=== PATIENT | female | born 1965 | race Caucasian/White ===

== ENCOUNTER → 2016-09-14 | Outpatient (CLI) | payer MEDICARE ==
[~2016-09-14] MED LIST: AMOXICILLIN 8751 TAB PO; CELEXA10 MG PO; DESYREL 100MG100 MG PO; EFFEXOR 75M75 MG/TAB PO; ESTRACE 1MG1 MG/TAB PO; MSIR30 MG PO; NEURONTIN800 MG/TAB PO; OXYCONTIN 10MG10 MG PO; PERCOCET 325 MG1 TAB PO; PREMARIN VAG42.5 GM VG; PRILOSEC 20MG20 MG PO; ULTRAM 50MG TAB50 MG PO
== END ==
LOC: MC.RAD 08:00
DX: D24.2 Benign neoplasm of left breast (principal); Z98.82 Breast implant status

== ENCOUNTER → 2017-10-14 | Outpatient (CLI) | payer MEDICARE | LOC: MC.RAD 14:00 | DX: N64.4 Mastodynia (principal); N64.59 Other signs and symptoms in breast; Z98.82 Breast implant status ==